=== PATIENT | female | born 1945 | race Caucasian/White ===

== ENCOUNTER 2023-01-25 19:16 | Emergency (ER) | payer OTHER, MEDICAID ==
[~2023-01-25] VITALS: Ht 167.6 cm; Wt 70.3 kg
[2023-01-25 19:20] VITALS: BP_SYST 120
--- NOTE | 2023-01-25 19:27 | NUR ---
Patient triaged and placed in waiting room. VSS and patient appears in no acute distress at this time. Accompanied by EMS, awaiting available bed, and MD notified of need for MSE.
--- NOTE | 2023-01-25 20:00 | NUR ---
ER Dr. Bran at bedside examining patient.
[2023-01-25 20:21] LABS: ANION GAP 8 (5-15); CALCIUM 9.2 mg/dL (8.4-11.0); CHLORIDE 100 mmol/L (98-107); CREATININE 1.25 mg/dL (0.55-1.30); GLUCOSE 126 mg/dL (70-99); UREA NITROGEN, BLOOD 9 mg/dL (8-21)
[2023-01-25 20:23] LABS: BASOPHILS # (AUTO) 0.1 K/uL (0.0-0.2); BASOPHILS % (AUTO) 0.7 % (0.0-2.0); EOSINOPHILS % (AUTO) 0.2 % (0.0-4.0); HEMATOCRIT 36.1 % (36-48); HEMOGLOBIN 12.2 g/dL (12.0-16.0); LYMPHOCYTES # (AUTO) 0.9 K/uL (1.0-5.5); LYMPHOCYTES % (AUTO) 9.2 % (20.5-51.5); MEAN CORPUSCULAR HEMOGLOBIN 33 pg (27-31); MEAN CORPUSCULAR HGB CONC 34 % (32-36); MEAN CORPUSCULAR VOLUME 99 fL (79.0-98.0); MONOCYTES % (AUTO) 10.8 % (1.7-9.3); NEUTROPHILS # (AUTO) 7.5 K/uL (1.8-7.7); NEUTROPHILS % (AUTO) 79.1 % (40.0-70.0); PLATELET COUNT (AUTO) 301 K/uL (130-430); RED BLOOD CELL COUNT(AUTO) 3.66 MIL/uL (4.2-6.2); RED CELL DISTRIBUTION WIDTH 12.8 % (9.0-15.0); WHITE BLOOD COUNT (AUTO) 9.5 K/uL (4.8-10.8)
[2023-01-25 20:26] LABS: ALANINE AMINOTRANSFERASE 24 U/L (12-78); ALBUMIN 3.6 g/dL (3.4-4.8); ASPARTATE AMINOTRANSFERASE 18 U/L (10-37); TOTAL BILIRUBIN 0.4 mg/dL (0.0-1.0)
[2023-01-25] MEDS ORDERED: NIRM1TAB PO (21:15)
--- NOTE | 2023-01-25 21:17 | NUR ---
Spoke with daughter and updated of patient's status. Dtr is insisting that she gets CT of head due to falling and hit head per dtr's claim. Notified Dr. Bran of pt's family request.
[2023-01-25 22:15] VITALS: BP_SYST 148
--- NOTE | 2023-01-25 22:15 | NUR ---
Patient given written and verbal discharge instructions and verbalizes understanding. ER MD Dr. Bran discussed with patient the results and treatment provided. Patient in stable condition. ID arm band removed. IV catheter removed intact and dressing applied, no active bleeding. Rx for Covid given. Patient educated on pain management and to follow up with PMD. Pain Scale 0/10. Left with daughter via w/c and via private car. Opportunity for questions provided and answered. Medication side effect fact sheet provided.
== END 2023-01-25 22:15 | disposition home or self-care (01) ==
LOC: SED 19:16
DX: U07.1 COVID-19 (principal); R55 Syncope and collapse; R05.9 Cough, unspecified; R42 Dizziness and giddiness; I10 Essential (primary) hypertension; Z88.0 Allergy status to penicillin; Z79.899 Other long term (current) drug therapy
CPT/HCPCS: 36415; 70450-TC; 76376; 80053; 85025; 93005; 99285